=== PATIENT | male | born 1965 | race Caucasian/White ===

== ENCOUNTER → 2019-03-27 | Outpatient (CLI) | payer BC ==
--- NOTE | 2019-03-30 02:55 | MR ---
EXAMINATION TYPE: MR elbow RT wo con DATE OF EXAM: 03/27/2019 COMPARISON: None HISTORY: Right elbow pain Standard multiplanar, multisequence MRI departmental protocol Multiplanar, multisequence images of the right elbow were acquired. FINDINGS: There is a moderate fluid signal around the biceps tendon. There is multiple tears of the b iceps tendon near its attachment on the radial tubercle. There is full-thickness tear of the tendon s een on the T2 axial image 5. There is however no retraction. The brachialis tendon is intact. There i s no evidence of elbow joint effusion. The collateral ligaments appear intact. I see no bony destructive process. There is no evidence of a fracture. Elbow joint spaces are normal. IMPRESSION: There is a full-thickness tear of the biceps tendon near the attachment on the radial tubercle. Mild surrounding fluid. No significant retraction of the tendon.
== END ==
LOC: RADMRIMAIN 17:17
PROVIDERS: ATTEND Orthopaedic Surgery Sports Medicine
DX: M25.521 Pain in right elbow (principal); S46.211D Strain of muscle, fascia and tendon of other parts of biceps, right arm, subsequent encounter

== ENCOUNTER 2021-10-24 06:58 | Emergency (ER) | payer BC ==
[2021-10-24 07:04] VITALS: TEMP 97.9
--- NOTE | 2021-10-24 07:43 | ED ---
Extremity Problem HPI - General Chief complaint: Extremity Problem,Nontraumatic Stated complaint: Left Arm pain Time Seen by Provider: 10/24/21 07:00 Source: patient Mode of arrival: ambulatory Limitations: no limitations - History of Present Illness Initial comments: 55-year-old male past mental history of hypertension presents emergency room in with reported left bicep pain. He reports that the pain started yesterday and has been intermittent. He describes it as a bandlike squeezing around the left bicep. Denies any provocative or palliative factors. States the pain only lasts for a few seconds before it spontaneously resolves. He denies that it radiates down into his hand or up into his chest. Denies chest pain or shortness of breath. Denies any shoulder or elbow pain. Unprovoked by movement. No associated fevers or chills. No skin changes. Denies any weakness in his hand. Patient is right-hand dominant. No pain or weakness in his left leg. Denies ripping or tearing sensation to his back. No headaches or visual changes. No recent interventions such as lab draws to the left arm. No history of DVTs or PEs. No cough. No history of stroke. No other alleviating, precipitating or modifying factors - Related Data Home Medications Medication Instructions Recorded Confirmed Aspirin EC [Ecotrin Low Dose] 81 mg PO DAILY 10/24/21 10/24/21 Atorvastatin [Lipitor] 20 mg PO HS 10/24/21 10/24/21 Azelastine HCl [Astepro] 1 spr NASAL DAILY PRN 10/24/21 10/24/21 Fluticasone Nasal [place] [Flonase 1 spr EA NOSTRIL DAILY PRN 10/24/21 10/24/21 Nasal [place]] Sildenafil Citrate [Viagra] 100 mg PO DAILY PRN 10/24/21 10/24/21 amLODIPine BESYLATE/BENAZEPRIL 1 cap PO DAILY 10/24/21 10/24/21 [Lotrel 5-40 MG] hydroCHLOROthiazide [Hydrodiuril] 25 mg PO DAILY 10/24/21 10/24/21 Allergies Allergy/AdvReac Type Severity Reaction Status Date / Time No Known Allergies Allergy Verified 10/24/21 07:55 Review of Systems ROS Statement: Those systems with pertinent positive or pertinent negative responses have been documented in the HPI. ROS Other: All systems not noted in ROS Statement are negative. Past Medical History Past Medical History: Hyperlipidemia, Hypertension Additional Past Medical History / Comment(s): pneumonia History of Any Multi-Drug Resistant Organisms: None Reported Past Surgical History: No Surgical Hx Reported Past Psychological History: No Psychological Hx Reported Smoking Status: Former smoker Past Alcohol Use History: Occasional Past Drug Use History: None Reported General Exam Limitations: no limitations General appearance: alert, in no apparent distress Head exam: Present: atraumatic, normocephalic, normal inspection Eye exam: Present: normal appearance, PERRL, EOMI. Absent: scleral icterus, conjunctival injection, periorbital swelling ENT exam: Present: normal exam, mucous membranes moist Neck exam: Present: normal inspection. Absent: tenderness, meningismus, lymphadenopathy Respiratory exam: Present: normal lung sounds bilaterally. Absent: respiratory distress, wheezes, rales, rhonchi, stridor Cardiovascular Exam: Present: regular rate, normal rhythm, normal heart sounds. Absent: systolic murmur, diastolic murmur, rubs, gallop, clicks GI/Abdominal exam: Present: soft, normal bowel sounds. Absent: distended, tenderness, guarding, rebound, rigid Extremities exam: Present: normal inspection, full ROM, normal capillary refill. Absent: tenderness, pedal edema, joint swelling, calf tenderness Back exam: Present: normal inspection Neurological exam: Present: alert, oriented X3, CN II-XII intact Psychiatric exam: Present: normal affect, normal mood Skin exam: Present: warm, dry, intact, normal color. Absent: rash Course Vital Signs 10/24/21 10/24/21 10/24/21 07:00 09:30 09:52 Temperature 97.9 F Pulse Rate 87 80 Respiratory 18 16 Rate Blood Pressure 193/108 126/80 126/80 O2 Sat by Pulse 97 96 Oximetry Medical Decision Making - Medical Decision Making Upon arrival the patient was placed into room 13. A thorough history and physical exam is performed. IV is established laboratory physical conducted. 12-lead EKG was performed per patient was sent for a chest x-ray. Patient is observed in the emergency department for approximately 2 and half hours. Results are discussed with the patient. Patient will be discharged home at this time and needs to follow-up with his primary care doctor in regards to his symptoms. Further testing is necessary for a diagnosis. Patient understood the limitations of the workup in the emergency department. If he has any new or worsening symptoms he needs to return. She was discharged home in stable condition - Lab Data Result diagrams: 10/24/21 07:30 10/24/21 07:30 Lab Results 10/24/21 10/24/21 10/24/21 Range/Units 07:30 07:30 07:30 WBC 7.2 (3.8-10.6) k/uL RBC 5.02 (4.30-5.90) m/uL Hgb 15.6 (13.0-17.5) gm/dL Hct 43.3 (39.0-53.0) % MCV 86.3 (80.0-100.0) fL MCH 31.0 (25.0-35.0) pg MCHC 36.0 (31.0-37.0) g/dL RDW 12.4 (11.5-15.5) % Plt Count 198 (150-450) k/uL MPV 7.4 Neutrophils % 56 % Lymphocytes % 30 % Monocytes % 6 % Eosinophils % 6 % Basophils % 1 % Neutrophils # 4.0 (1.3-7.7) k/uL Lymphocytes # 2.2 (1.0-4.8) k/uL Monocytes # 0.4 (0-1.0) k/uL Eosinophils # 0.5 (0-0.7) k/uL Basophils # 0.1 (0-0.2) k/uL PT 10.2 (9.0-12.0) sec INR 0.9 (<1.2) APTT 22.1 (22.0-30.0) sec Sodium 137 (137-145) mmol/L Potassium 3.5 (3.5-5.1) mmol/L Chloride 101 (98-107) mmol/L Carbon Dioxide 28 (22-30) mmol/L Anion Gap 8 mmol/L BUN 16 (9-20) mg/dL Creatinine 0.92 (0.66-1.25) mg/dL Est GFR (CKD-EPI)AfAm >90 (>60 ml/min/1.73 sqM) Est GFR (CKD-EPI)NonAf >90 (>60 ml/min/1.73 sqM) Glucose 129 H (74-99) mg/dL Calcium 10.2 (8.4-10.2) mg/dL Magnesium 2.0 (1.6-2.3) mg/dL Total Bilirubin 0.4 (0.2-1.3) mg/dL AST 25 (17-59) U/L ALT 13 (4-49) U/L Alkaline Phosphatase 74 (38-126) U/L Troponin I (0.000-0.034) ng/mL Total Protein 6.9 (6.3-8.2) g/dL Albumin 4.3 (3.5-5.0) g/dL Lipase 77 (23-300) U/L 10/24/21 Range/Units 07:30 WBC (3.8-10.6) k/uL RBC (4.30-5.90) m/uL Hgb (13.0-17.5) gm/dL Hct (39.0-53.0) % MCV (80.0-100.0) fL MCH (25.0-35.0) pg MCHC (31.0-37.0) g/dL RDW (11.5-15.5) % Plt Count (150-450) k/uL MPV Neutrophils % % Lymphocytes % % Monocytes % % Eosinophils % % Basophils % % Neutrophils # (1.3-7.7) k/uL Lymphocytes # (1.0-4.8) k/uL Monocytes # (0-1.0) k/uL Eosinophils # (0-0.7) k/uL Basophils # (0-0.2) k/uL PT (9.0-12.0) sec INR (<1.2) APTT (22.0-30.0) sec Sodium (137-145) mmol/L Potassium (3.5-5.1) mmol/L Chloride (98-107) mmol/L Carbon Dioxide (22-30) mmol/L Anion Gap mmol/L BUN (9-20) mg/dL Creatinine (0.66-1.25) mg/dL Est GFR (CKD-EPI)AfAm (>60 ml/min/1.73 sqM) Est GFR (CKD-EPI)NonAf (>60 ml/min/1.73 sqM) Glucose (74-99) mg/dL Calcium (8.4-10.2) mg/dL Magnesium (1.6-2.3) mg/dL Total Bilirubin (0.2-1.3) mg/dL AST (17-59) U/L ALT (4-49) U/L Alkaline Phosphatase (38-126) U/L Troponin I <0.012 (0.000-0.034) ng/mL Total Protein (6.3-8.2) g/dL Albumin (3.5-5.0) g/dL Lipase (23-300) U/L - EKG Data EKG Comments: EKG demonstrates a normal sinus rhythm with a ventricular rate of 85. HI interval 182. QRS 104. QTC of 468. There is a PVC. No acute ST segment elevations Disposition Clinical Impression: Arm pain Disposition: HOME SELF-CARE Condition: Stable Instructions (If sedation given, give patient instructions): Arm Pain (ED) Additional Instructions: Please follow-up with your primary care doctor in 2-4 days. I do recommend stress testing and echo. Return to the emergency room for any new or worsening symptoms Is patient prescribed a controlled substance at d/c from ED?: No Referrals: Patrick Slater MD [Primary Care Provider] - 1-2 days Time of Disposition: 09:40
[2021-10-24 07:51] LABS: Basophils # (A) 0.1 k/uL (0-0.2); Basophils % (A) 1 %; Eosinophils # (A) 0.5 k/uL (0-0.7); Eosinophils % (A) 6 %; HCT 43.3 % (39.0-53.0); HGB 15.6 gm/dL (13.0-17.5); Lymphocytes # (A) 2.2 k/uL (1.0-4.8); Lymphocytes % (A) 30 %; MCV 86.3 fL (80.0-100.0); Mean Platelet Volume 7.4; Monocytes # (A) 0.4 k/uL (0-1.0); Monocytes % (A) 6 %; Neutrophils % (A) 56 %; Platelet Count 198 k/uL (150-450); RBC 5.02 m/uL (4.30-5.90); RDW 12.4 % (11.5-15.5); WBC 7.2 k/uL (3.8-10.6)
[2021-10-24 08:06] LABS: ALT 13 U/L (4-49); AST 25 U/L (17-59); African American GFR (CKD) >90 (>60 ml/min/1.73 sqM); Albumin 4.3 g/dL (3.5-5.0); Alkaline Phosphatase 74 U/L (38-126); Anion Gap 8 mmol/L; Blood Urea Nitrogen 16 mg/dL (9-20); Calcium 10.2 mg/dL (8.4-10.2); Carbon Dioxide 28 mmol/L (22-30); Chloride 101 mmol/L (98-107); Glucose 129 mg/dL (74-99); Lipase 77 U/L (23-300); Non-African American GFR(CKD) >90 (>60 ml/min/1.73 sqM); Potassium 3.5 mmol/L (3.5-5.1); Sodium 137 mmol/L (137-145); Total Bilirubin 0.4 mg/dL (0.2-1.3); Total Protein 6.9 g/dL (6.3-8.2)
--- NOTE | 2021-10-24 08:11 | XR ---
EXAMINATION TYPE: XR chest 2V DATE OF EXAM: 10/24/2021 COMPARISON: 03/01/2014 INDICATION: Chest pain TECHNIQUE: Frontal and lateral views of the chest are obtained. FINDINGS: The heart size is normal. The pulmonary vasculature is normal. The lungs are clear. IMPRESSION: 1. No acute pulmonary process.
[2021-10-24 08:12] LABS: INR 0.9 (<1.2); Partial Thromboplastin Time 22.1 sec (22.0-30.0); Prothrombin Time 10.2 sec (9.0-12.0)
[2021-10-24 09:30] VITALS: BP 126/80
[2021-10-24 09:53] VITALS: PULSE 80; RESP 16
== END 2021-10-24 09:53 | disposition home or self-care (01) ==
LOC: EC 06:58
DX: M79.602 Pain in left arm (principal); I10 Essential (primary) hypertension; E78.5 Hyperlipidemia, unspecified; Z87.891 Personal history of nicotine dependence; Z79.899 Other long term (current) drug therapy; Z79.82 Long term (current) use of aspirin
CPT/HCPCS: 36415; 71046; 80053; 83690; 83735; 84484; 85025; 85610; 85730; 93005; 99284

== ENCOUNTER → 2023-11-01 | Outpatient (CLI) | payer BC ==
--- NOTE | 2023-11-04 23:12 | MR ---
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 COMPARISON: None. TECHNIQUE: Multi planar, multi sequence imaging was performed utilizing: T1-weighted, T2-weighted, an d turbo inversion recovery imaging of the cervical spine. IV Contrast: cc (none if empty) FINDINGS: Alignment: The cervical vertebral bodies have preserved heights. Alignment is within normal limits gi nicholas patient positioning. Bones: Bone signal is within normal limits. No abnormal bone marrow edema on inversion recovery seque nces. Cord: The spinal cord is unremarkable with regards to their signal intensity and morphology. Discs: Multilevel disc desiccation is present. C2-C3: No significant disc pathology. The spinal canal is patent. No neural foraminal stenosis. C3-C4: No significant disc pathology. The spinal canal is patent. No neural foraminal stenosis. C4-C5: A disc osteophyte complex is present which minimally narrows the ventral subarachnoid space. Bilateral facet and uncovertebral joint arthropathy are present with moderate bilateral neural leidy inal stenosis. C5-C6: No significant disc pathology. The spinal canal is patent. Bilateral facet and uncovertebral joint arthropathy are present with severe bilateral neural foraminal stenosis. C6-C7: A disc osteophyte complex is present with mild spinal canal stenosis. Bilateral facet and unc overtebral joint arthropathy are present with severe left and moderate to severe right neural foramin al stenosis. C7-T1: No significant disc pathology. The spinal canal is patent. Bilateral facet and uncovertebral joint arthropathy are present with mild bilateral neural foraminal stenosis. Other: None. IMPRESSION: 1. No evidence for disc herniation or significant spinal canal stenosis. 2. Multilevel disc degeneration with associated osteoarthritic changes neural foraminal stenosis wors e at C5-C6 C6-7 bilaterally slightly worse on the left.
== END | disposition home or self-care (01) ==
LOC: RADMRIMAIN 21:15
PROVIDERS: ATTEND Orthopaedic Surgery Sports Medicine
DX: M50.122 Cervical disc disorder at C5-C6 level with radiculopathy (principal); M75.42 Impingement syndrome of left shoulder; M47.22 Other spondylosis with radiculopathy, cervical region; M19.012 Primary osteoarthritis, left shoulder; M19.022 Primary osteoarthritis, left elbow; M48.02 Spinal stenosis, cervical region
CPT/HCPCS: 72141